=== PATIENT | female | born 1980 | race Two or more races ===

== ENCOUNTER 2022-07-18 08:03 | Inpatient (IN) | payer MEDICARE, OTHER ==
[~2022-07-18] VITALS: Ht 162.6 cm; Wt 129.9 kg
[2022-07-18] MEDS ORDERED: SODIUM CHLORIDE 0.9% 2,000 ML IV ONE (09:30)
[2022-07-18] MEDS ORDERED: methylPREDNISolone SOD SUCC 125 MG/2 ML VL IV ONE (10:15)
[2022-07-18] MEDS ORDERED: diphenhdrAMINE HCL 50 MG/1 ML VL IV ONE (10:15)
[2022-07-18 10:37] LABS: Hemoglobin 12.1 g/dL (12.2-16.2); Red Cell Distribution Width 18.8 % (11.8-14.3)
[2022-07-18 10:38] LABS: Hematocrit 39.3 % (36.0-46.0); Mean Corpuscular Hemoglobin 24.3 pg (28.0-32.0); Mean Corpuscular Hgb Conc. 30.8 g/dL (32.0-36.0); Mean Corpuscular Volume 78.9 fL (80.0-100.0); Red Blood Cells 4.97 10^6/uL (4.0-5.20); White Blood Cell 14.6 10^3/uL (4.4-10.8)
[2022-07-18 10:45] LABS: Albumin 2.8 g/dL (3.4-5.0); Calcium 8.8 mg/dL (8.5-10.1); Potassium 4.5 mmol/L (3.5-5.1)
[2022-07-18 10:48] LABS: BUN/Creatinine Ratio 10.9; Bilirubin, Total 0.4 mg/dL (0.2-1.0); Total Protein 8.2 g/dL (6.4-8.2)
[2022-07-18 10:53] LABS: Urine Amorphous Crystal FEW /hpf (None Seen); Urine Bacteria FEW /hpf (None Seen); Urine Blood 1+ /uL (Negative); Urine Hyaline Cast MANY /lpf (0 - 2); Urine Mucus FEW (None Seen); Urine Specific Gravity 1.025 (1.001-1.035); Urine WBC 40 /hpf (0 - 5)
[2022-07-18] MEDS ORDERED: cefTRIAXone 1GM/50ML D5W 50 ML IV ONE (11:15)
[2022-07-18] MEDS ORDERED: SODIUM CHLORIDE 0.9% 500 ML IVB ONE (11:15)
[2022-07-18] MEDS ORDERED: SODIUM CHLORIDE 0.9% 1,000 ML IV ONE (11:15)
[2022-07-18 11:30] LABS: Lactic Acid w/Reflex 3.9 mmol/L (0.4-2.0)
[2022-07-18 11:54] LABS: Magnesium 1.2 mg/dL (1.6-2.6)
[2022-07-18] MEDS: MAGNESIUM SULFATE 1GM/100ML 100 ML IV SCH ×3 (14:43→18:45)
[2022-07-18] MEDS ORDERED: DOCUSATE SOD 100 MG CAP PO PRN (19:00)
[2022-07-18] MEDS ORDERED: MORPHINE SULFATE INJ 2 MG/ml SYRG IV PRN (19:00)
[2022-07-18] MEDS ORDERED: EPINEPHrine HCL 1 MG/1 ML AMP IM ONE (19:00)
[2022-07-18] MEDS ORDERED: NITROGLYCERIN 0.4 MG SL TAB SL PRN (19:00)
[2022-07-18] MEDS ORDERED: ONDANSETRON HCL 4 MG/2 ML VIAL IV PRN (19:00)
[2022-07-18] MEDS ORDERED: ALBUTEROL SULF 2.5 MG/0.5ML(0.5%) NEB SOLN NEB ONE (19:00)
[2022-07-18] MEDS ORDERED: DEXTROSE (50%) 50ML SYRG IV PRN (19:00)
[2022-07-18] MEDS ORDERED: PIPERACILLIN-TAZOB 3.375GM 100 ML IV ONE (19:15)
[2022-07-18] MEDS: VASOPRESSIN 50 UNITS in D5W 5% 247.5 ML IV SCH (19:15)
[2022-07-18] MEDS ORDERED: VANCOMYCIN 1GM/250ML 250 ML IV ONE (19:15)
[2022-07-18] MEDS: SODIUM CHLORIDE 0.9% 1,000 ML IV SCH (19:17)
[2022-07-18 19:40] LABS: Basophils % (manual) 0 (0.0-2.0); Blast Cells 0; Eosinophils % (manual) 0 (0-7); Promyelocytes % 0; Reactive Lymphocytes 0
[2022-07-18 20:05] LABS: Sodium Urine < 5 mmol/L (40-220)
[2022-07-18 20:07] LABS: Band Neutrophils % (manual) 46; Lymphocytes % (manual) 6 (10.0-50.0); Metamyelocytes % 10; Monocytes % (manual) 2 (0-12); Myelocytes % 22
[2022-07-18 20:40] LABS: Creatinine, Urine 283 mg/dL (30.0-125.0)
[2022-07-18 20:49] LABS: Lactic Acid w/Reflex 4.7 mmol/L (0.4-2.0)
[2022-07-18 21:09] LABS: Amphetamine Screen, Urine NEGATIVE (NEGATIVE); Barbiturate Scree,Urine NEGATIVE (NEGATIVE); Benzodiazephine Screen, Urine NEGATIVE (NEGATIVE); Cannabinoid Screen, Urine NEGATIVE (NEGATIVE); Cocaine Screen, Urine NEGATIVE (NEGATIVE); Opiate Scree,Urine POSITIVE (NEGATIVE); Phencyclidine Screen, Urine NEGATIVE (NEGATIVE)
[2022-07-18 23:19] VITALS: BP 105/50
[2022-07-19] MEDS: ACCU-CHEK COMFORT CURVE STRIP VI SCH ×4 (00:36→18:00)
[2022-07-19] MEDS: InsuLIN REG 1unit/0.01ml Soln (100units/ml) SC SCH ×4 (00:52→18:57)
[2022-07-19] MEDS ORDERED: SODIUM CHLORIDE 0.9% 1,000 ML IV ONE (01:45)
[2022-07-19] MEDS ORDERED: levoFLOXacin 500MG 100 ML IV SCH ×2 (01:45→16:00)
[2022-07-19] MEDS ORDERED: GABA100C9 PO (05:14)
[2022-07-19] MEDS ORDERED: GABA300C10 PO (05:14)
[2022-07-19] MEDS ORDERED: TOPI50TA32 PO (05:18)
[2022-07-19] MEDS ORDERED: FLUO60TA7 PO (05:18)
[2022-07-19] MEDS: SODIUM CHLORIDE 0.9% 1,000 ML IV SCH ×3 (05:26→14:30)
[2022-07-19 05:45] LABS: Basophils # (auto) 0 10 ^3/uL (0-0.2); Lymphocytes # (auto) 0.7 10 ^3/uL (0.4-5.4); Monocytes # (auto) 0.3 10 ^3/uL (0-1.3); Nucleated Red Blood Cells % 0.1 %
[2022-07-19 05:46] LABS: Basophils % (auto) 0.3 % (0.0-2.0); Eosinophils # (auto) 0.8 10 ^3/uL (0-0.8); Hematocrit 37.1 % (36.0-46.0); Hemoglobin 11.2 g/dL (12.2-16.2); Lymphocytes % (auto) 5.8 % (10.0-50.0); Mean Corpuscular Hemoglobin 23.9 pg (28.0-32.0); Mean Corpuscular Hgb Conc. 30.3 g/dL (32.0-36.0); Mean Corpuscular Volume 78.8 fL (80.0-100.0); Monocytes % (auto) 2.6 % (0.0-12.0); Neutrophils # (auto) 10.9 10 ^3/uL (1.6-8.6); Neutrophils % (auto) 85.3 % (37.0-80.0); Red Blood Cells 4.71 10^6/uL (4.0-5.20); Red Cell Distribution Width 18.9 % (11.8-14.3); White Blood Cell 12.7 10^3/uL (4.4-10.8)
[2022-07-19 06:09] LABS: Calcium 7.5 mg/dL (8.5-10.1); Potassium 4.1 mmol/L (3.5-5.1)
[2022-07-19 06:13] LABS: BUN/Creatinine Ratio 22.8; Bilirubin, Total 0.4 mg/dL (0.2-1.0); Total Protein 6.9 g/dL (6.4-8.2)
[2022-07-19] MEDS ORDERED: EMTRTAB7 PO (06:50)
[2022-07-19] MEDS: ALBUTEROL SULF 2.5 MG/0.5ML(0.5%) NEB SOLN NEB PRN (07:26)
[2022-07-19] MEDS: guaiFENesin-DM 100/10mg/5ml SYR PO PRN ×2 (07:33→23:00)
[2022-07-19] MEDS ORDERED: ZINC SULFATE 220mg CAP or TAB PO ONE (12:30)
[2022-07-19] MEDS ORDERED: cefTRIAXone 1GM/50ML D5W 50 ML IV ONE (12:30)
[2022-07-19] MEDS ORDERED: REMDESIVIR PER PHARMACY 0 ML IV SCH (12:30)
[2022-07-19] MEDS ORDERED: CHOLECALCIFEROL (VITD3) 2,000 UNIT CAP/TAB PO ONE (12:30)
[2022-07-19] MEDS: IPRATROPIUM BROM 0.5 MG/2.5ML INH SOL NEB SCH ×2 (13:10→17:34)
[2022-07-19] MEDS: ALBUTEROL SULF 2.5 MG/0.5ML(0.5%) NEB SOLN NEB SCH ×2 (13:10→17:34)
[2022-07-19] MEDS: FAMOTIDINE (10MG/ML) 2ML VL IV SCH (13:23)
[2022-07-19] MEDS: ENOXAPARIN SOD 40 MG/0.4 ML SYRINGE SC SCH (13:24)
[2022-07-19] MEDS ORDERED: IOHEXOL 350 MG/ML 100ML IJ ONE (14:18)
[2022-07-19] MEDS ORDERED: REMDESIVIR 200 MG in NS 210ml LOADING DOSE ADULT IV ONE (15:00)
[2022-07-19] MEDS: VASOPRESSIN 50 UNITS in D5W 5% 247.5 ML IV SCH (18:57)
[2022-07-19 22:00] VITALS: BP 103/60
[2022-07-19] MEDS: TOPIRAMATE 25 MG TAB PO SCH (23:01)
[2022-07-19] MEDS: ASCORBIC ACID 500 MG TAB PO SCH (23:01)
[2022-07-19] MEDS: FLUoxetine HCL 10 MG CAP PO SCH (23:01)
[2022-07-20] MEDS: ALBUTEROL SULF 2.5 MG/0.5ML(0.5%) NEB SOLN NEB SCH ×7 (00:32→22:00)
[2022-07-20] MEDS: IPRATROPIUM BROM 0.5 MG/2.5ML INH SOL NEB SCH ×7 (00:32→22:00)
[2022-07-20 05:00] VITALS: BP 133/78
[2022-07-20] MEDS: InsuLIN REG 1unit/0.01ml Soln (100units/ml) SC SCH ×5 (06:00→23:20)
[2022-07-20] MEDS: ACCU-CHEK COMFORT CURVE STRIP VI SCH ×5 (06:00→23:20)
[2022-07-20 06:37] LABS: Basophils # (auto) 0 10 ^3/uL (0-0.2); Basophils % (auto) 0.1 % (0.0-2.0); Eosinophils # (auto) 0.1 10 ^3/uL (0-0.8); Eosinophils % (auto) 0.7 % (0.0-7.0); Hematocrit 33.3 % (36.0-46.0); Hemoglobin 10.1 g/dL (12.2-16.2); Lymphocytes # (auto) 0.5 10 ^3/uL (0.4-5.4); Lymphocytes % (auto) 3.5 % (10.0-50.0); Mean Corpuscular Hemoglobin 23.4 pg (28.0-32.0); Mean Corpuscular Hgb Conc. 30.4 g/dL (32.0-36.0); Mean Corpuscular Volume 76.8 fL (80.0-100.0); Monocytes # (auto) 0.1 10 ^3/uL (0-1.3); Monocytes % (auto) 0.9 % (0.0-12.0); Neutrophils % (auto) 94.8 % (37.0-80.0); Nucleated Red Blood Cells % 0.1 %; Red Blood Cells 4.34 10^6/uL (4.0-5.20); White Blood Cell 14.8 10^3/uL (4.4-10.8)
[2022-07-20 07:04] LABS: Albumin 1.9 g/dL (3.4-5.0); Calcium 7.7 mg/dL (8.5-10.1); Magnesium 2.2 mg/dL (1.6-2.6); Potassium 3.7 mmol/L (3.5-5.1)
[2022-07-20 07:09] LABS: BUN/Creatinine Ratio 29.2; Bilirubin, Total 0.4 mg/dL (0.2-1.0); Total Protein 6.1 g/dL (6.4-8.2)
[2022-07-20] MEDS: SODIUM CHLORIDE 0.9% 1,000 ML IV SCH ×2 (07:10→21:42)
[2022-07-20 09:00] VITALS: BP 124/77
[2022-07-20] MEDS: cefTRIAXone 1GM/50ML D5W 50 ML IV SCH (09:00)
[2022-07-20] MEDS: ZINC SULFATE 220mg CAP or TAB PO SCH (10:00)
[2022-07-20] MEDS: DexAMETHasone SOD PHOS 10MG/1ML VIAL INJ IV SCH (10:00)
[2022-07-20] MEDS: FAMOTIDINE (10MG/ML) 2ML VL IV SCH (11:31)
[2022-07-20] MEDS: ENOXAPARIN SOD 40 MG/0.4 ML SYRINGE SC SCH (11:32)
[2022-07-20] MEDS: CHOLECALCIFEROL (VITD3) 2,000 UNIT CAP/TAB PO SCH (11:32)
[2022-07-20] MEDS: TOPIRAMATE 25 MG TAB PO SCH ×3 (11:33→21:41)
[2022-07-20] MEDS: ASCORBIC ACID 500 MG TAB PO SCH ×2 (11:33→21:42)
[2022-07-20 12:25] LABS: Alcohol, Urine < 3.0 mg/dL (0-10); Amphetamine Screen, Urine NEGATIVE (NEGATIVE); Barbiturate Scree,Urine NEGATIVE (NEGATIVE); Benzodiazephine Screen, Urine NEGATIVE (NEGATIVE); Cannabinoid Screen, Urine NEGATIVE (NEGATIVE); Cocaine Screen, Urine NEGATIVE (NEGATIVE); Opiate Scree,Urine NEGATIVE (NEGATIVE); Phencyclidine Screen, Urine NEGATIVE (NEGATIVE)
[2022-07-20 13:00] VITALS: BP 129/70
[2022-07-20] MEDS ORDERED: GABAPENTIN 300 MG CAP PO SCH (14:00)
[2022-07-20] MEDS ORDERED: AZITHROMYCIN 250 MG TAB PO ONE (15:00)
[2022-07-20] MEDS: REMDESIVIR 100mg 100 MG in SODIUM CHL 0.9% 230 ML IV SCH (15:00)
[2022-07-20 17:00] VITALS: BP 119/86
[2022-07-20] MEDS: FLUoxetine HCL 10 MG CAP PO SCH (21:41)
[2022-07-20] MEDS: GABAPENTIN 400 MG CAP PO SCH (21:41)
[2022-07-20 22:00] VITALS: BP 133/97
[2022-07-21] VITALS (7 sets, daily range): BP systolic 113–138; BP diastolic 60–82
[2022-07-21] MEDS: guaiFENesin-DM 100/10mg/5ml SYR PO PRN ×2 (01:20→21:32)
[2022-07-21] MEDS: IPRATROPIUM BROM 0.5 MG/2.5ML INH SOL NEB SCH ×7 (01:21→22:00)
[2022-07-21] MEDS: ALBUTEROL SULF 2.5 MG/0.5ML(0.5%) NEB SOLN NEB SCH ×7 (01:21→22:00)
[2022-07-21] MEDS ORDERED: levoFLOXacin 250MG 50 ML IV SCH (01:45)
[2022-07-21] MEDS: SODIUM CHLORIDE 0.9% 1,000 ML IV SCH (04:23)
[2022-07-21] MEDS: GABAPENTIN 400 MG CAP PO SCH ×3 (05:18→21:23)
[2022-07-21] MEDS: ACCU-CHEK COMFORT CURVE STRIP VI SCH (05:18)
[2022-07-21] MEDS: TOPIRAMATE 25 MG TAB PO SCH ×3 (05:18→21:24)
[2022-07-21] MEDS: InsuLIN REG 1unit/0.01ml Soln (100units/ml) SC SCH (05:18)
[2022-07-21 06:03] LABS: Potassium 3.9 mmol/L (3.5-5.1)
[2022-07-21 06:10] LABS: Albumin 1.7 g/dL (3.4-5.0); BUN/Creatinine Ratio 28.4; Calcium 8.4 mg/dL (8.5-10.1)
[2022-07-21 06:13] LABS: Bilirubin, Total 0.4 mg/dL (0.2-1.0); Total Protein 6.8 g/dL (6.4-8.2)
[2022-07-21] MEDS: EMTRICITABINE-TENOFOVIR 200/300MG(TRUVADA) PO SCH (08:47)
[2022-07-21] MEDS: cefTRIAXone 1GM/50ML D5W 50 ML IV SCH (08:47)
[2022-07-21] MEDS: DexAMETHasone SOD PHOS 10MG/1ML VIAL INJ IV SCH (08:47)
[2022-07-21] MEDS: ZINC SULFATE 220mg CAP or TAB PO SCH (08:47)
[2022-07-21] MEDS: ASCORBIC ACID 500 MG TAB PO SCH ×2 (08:47→21:24)
[2022-07-21] MEDS: ENOXAPARIN SOD 40 MG/0.4 ML SYRINGE SC SCH (08:48)
[2022-07-21] MEDS: CHOLECALCIFEROL (VITD3) 2,000 UNIT CAP/TAB PO SCH (08:48)
[2022-07-21] MEDS ORDERED: AZITHROMYCIN 250 MG TAB PO SCH (10:00)
[2022-07-21] MEDS: REMDESIVIR 100mg 100 MG in SODIUM CHL 0.9% 230 ML IV SCH (14:53)
[2022-07-21] MEDS: FLUoxetine HCL 10 MG CAP PO SCH (21:23)
[2022-07-22] MEDS: IPRATROPIUM BROM 0.5 MG/2.5ML INH SOL NEB SCH ×7 (02:00→21:55)
[2022-07-22] MEDS: ALBUTEROL SULF 2.5 MG/0.5ML(0.5%) NEB SOLN NEB SCH ×7 (02:00→21:55)
[2022-07-22 05:00] VITALS: BP 152/92
[2022-07-22 06:00] VITALS: BP 133/72
[2022-07-22 06:03] LABS: Albumin 1.6 g/dL (3.4-5.0); Calcium 8.2 mg/dL (8.5-10.1)
[2022-07-22 06:05] LABS: BUN/Creatinine Ratio 47.8; Bilirubin, Total 0.3 mg/dL (0.2-1.0)
[2022-07-22] MEDS: TOPIRAMATE 25 MG TAB PO SCH ×3 (06:07→21:17)
[2022-07-22] MEDS: GABAPENTIN 400 MG CAP PO SCH ×3 (06:07→21:16)
[2022-07-22 09:00] VITALS: BP 133/67
[2022-07-22] MEDS: DexAMETHasone SOD PHOS 10MG/1ML VIAL INJ IV SCH (09:25)
[2022-07-22] MEDS: ZINC SULFATE 220mg CAP or TAB PO SCH (09:25)
[2022-07-22] MEDS: ASCORBIC ACID 500 MG TAB PO SCH ×2 (09:25→21:17)
[2022-07-22] MEDS: SODIUM CHLORIDE 0.9% 1,000 ML IV SCH (09:25)
[2022-07-22] MEDS: ENOXAPARIN SOD 40 MG/0.4 ML SYRINGE SC SCH (09:26)
[2022-07-22] MEDS: EMTRICITABINE-TENOFOVIR 200/300MG(TRUVADA) PO SCH (09:26)
[2022-07-22] MEDS: CHOLECALCIFEROL (VITD3) 2,000 UNIT CAP/TAB PO SCH (09:26)
[2022-07-22 10:15] LABS: Hemoglobin 9.6 g/dL (12.2-16.2); Mean Corpuscular Hgb Conc. 31.2 g/dL (32.0-36.0)
[2022-07-22 10:17] LABS: Hematocrit 30.7 % (36.0-46.0); Mean Corpuscular Volume 76.8 fL (80.0-100.0); Red Cell Distribution Width 19.3 % (11.8-14.3); White Blood Cell 19.4 10^3/uL (4.4-10.8)
[2022-07-22 10:21] LABS: Basophils % (manual) 0 (0.0-2.0); Blast Cells 0; Eosinophils % (manual) 0 (0-7); Myelocytes % 0; Promyelocytes % 0; Reactive Lymphocytes 0
[2022-07-22 11:48] LABS: Band Neutrophils % (manual) 9; Lymphocytes % (manual) 5 (10.0-50.0); Metamyelocytes % 4; Monocytes % (manual) 4 (0-12)
[2022-07-22 13:00] VITALS: BP 124/66
[2022-07-22] MEDS: REMDESIVIR 100mg 100 MG in SODIUM CHL 0.9% 230 ML IV SCH (15:17)
[2022-07-22 17:00] VITALS: BP 110/72
[2022-07-22] MEDS: NYSTATIN (MOUTH-THROAT) 500,000 UNITS/5 ML SUSP MT SCH (21:16)
[2022-07-22] MEDS: FLUoxetine HCL 10 MG CAP PO SCH (21:17)
[2022-07-22 22:00] VITALS: BP 133/66
[2022-07-23] MEDS: SODIUM CHLORIDE 0.9% 1,000 ML IV SCH ×2 (01:50→17:17)
[2022-07-23] MEDS: guaiFENesin-DM 100/10mg/5ml SYR PO PRN (03:16)
[2022-07-23] MEDS: ALBUTEROL SULF 2.5 MG/0.5ML(0.5%) NEB SOLN NEB PRN (03:29)
[2022-07-23 05:00] VITALS: BP 136/76
[2022-07-23] MEDS: GABAPENTIN 400 MG CAP PO SCH ×3 (05:38→21:43)
[2022-07-23] MEDS: TOPIRAMATE 25 MG TAB PO SCH ×3 (05:38→21:43)
[2022-07-23 05:42] LABS: Calcium 8.3 mg/dL (8.5-10.1); Potassium 3.8 mmol/L (3.5-5.1)
[2022-07-23 05:48] LABS: Albumin 1.6 g/dL (3.4-5.0); Bilirubin, Total 0.2 mg/dL (0.2-1.0); Total Protein 6.8 g/dL (6.4-8.2)
[2022-07-23] MEDS: ALBUTEROL SULF 2.5 MG/0.5ML(0.5%) NEB SOLN NEB SCH ×5 (07:38→22:20)
[2022-07-23] MEDS: IPRATROPIUM BROM 0.5 MG/2.5ML INH SOL NEB SCH ×5 (07:38→22:20)
[2022-07-23 09:00] VITALS: BP 132/75
[2022-07-23] MEDS: NYSTATIN (MOUTH-THROAT) 500,000 UNITS/5 ML SUSP MT SCH ×2 (10:02→21:43)
[2022-07-23] MEDS: DexAMETHasone SOD PHOS 10MG/1ML VIAL INJ IV SCH (10:02)
[2022-07-23] MEDS: ENOXAPARIN SOD 40 MG/0.4 ML SYRINGE SC SCH (10:03)
[2022-07-23] MEDS: ZINC SULFATE 220mg CAP or TAB PO SCH (10:03)
[2022-07-23] MEDS: CHOLECALCIFEROL (VITD3) 2,000 UNIT CAP/TAB PO SCH (10:03)
[2022-07-23] MEDS: ASCORBIC ACID 500 MG TAB PO SCH ×2 (10:03→21:44)
[2022-07-23] MEDS: EMTRICITABINE-TENOFOVIR 200/300MG(TRUVADA) PO SCH (10:03)
[2022-07-23 13:00] VITALS: BP 126/71
[2022-07-23] MEDS: REMDESIVIR 100mg 100 MG in SODIUM CHL 0.9% 230 ML IV SCH (14:08)
[2022-07-23 17:00] VITALS: BP 119/61
[2022-07-23] MEDS ORDERED: KETOROLAC TROMETH 30 MG/ML 1ML VIAL IV ONE (21:00)
[2022-07-23] MEDS: FLUoxetine HCL 10 MG CAP PO SCH (21:43)
[2022-07-23 22:11] VITALS: BP 144/96
[2022-07-24] MEDS: IPRATROPIUM BROM 0.5 MG/2.5ML INH SOL NEB SCH ×6 (01:52→18:00)
[2022-07-24] MEDS: ALBUTEROL SULF 2.5 MG/0.5ML(0.5%) NEB SOLN NEB SCH ×6 (01:52→18:00)
[2022-07-24] MEDS: KETOROLAC TROMETH 30 MG/ML 1ML VIAL IV PRN ×2 (04:30→16:46)
[2022-07-24 05:24] VITALS: BP 135/72
[2022-07-24] MEDS: GABAPENTIN 400 MG CAP PO SCH ×3 (06:02→21:19)
[2022-07-24] MEDS: NYSTATIN (MOUTH-THROAT) 500,000 UNITS/5 ML SUSP MT SCH ×3 (06:02→21:19)
[2022-07-24] MEDS: TOPIRAMATE 25 MG TAB PO SCH ×3 (06:02→21:19)
[2022-07-24 09:00] VITALS: BP 135/63
[2022-07-24] MEDS: ENOXAPARIN SOD 40 MG/0.4 ML SYRINGE SC SCH (09:30)
[2022-07-24] MEDS: EMTRICITABINE-TENOFOVIR 200/300MG(TRUVADA) PO SCH (09:30)
[2022-07-24] MEDS: DexAMETHasone SOD PHOS 10MG/1ML VIAL INJ IV SCH (09:30)
[2022-07-24] MEDS: ZINC SULFATE 220mg CAP or TAB PO SCH (09:32)
[2022-07-24] MEDS: FUROSEMIDE 20 MG/2 ML VIAL IV SCH (09:32)
[2022-07-24] MEDS: ASCORBIC ACID 500 MG TAB PO SCH ×2 (09:32→21:19)
[2022-07-24] MEDS: CHOLECALCIFEROL (VITD3) 2,000 UNIT CAP/TAB PO SCH (09:32)
[2022-07-24] MEDS: SODIUM CHLORIDE 0.9% 1,000 ML IV SCH (10:06)
[2022-07-24] MEDS: diphenhdrAMINE HCL 50 MG/1 ML VL IV PRN ×2 (10:08→23:16)
[2022-07-24] MEDS ORDERED: ASCO500T11 PO (11:51)
[2022-07-24] MEDS ORDERED: AZIT500T66 PO (11:51)
[2022-07-24] MEDS ORDERED: ZINC220C10 PO (11:51)
[2022-07-24] MEDS ORDERED: ALBUAER3 IN (11:51)
[2022-07-24] MEDS ORDERED: NYS5LQ MT (11:51)
[2022-07-24] MEDS ORDERED: DIPH25CA66 PO (11:51)
[2022-07-24] MEDS ORDERED: CHOL500035 PO (11:53)
[2022-07-24 13:00] VITALS: BP 125/70
[2022-07-24 16:10] VITALS: BP 125/70
[2022-07-24 17:00] VITALS: BP 144/74
[2022-07-24] MEDS: FLUoxetine HCL 10 MG CAP PO SCH (21:19)
[2022-07-24 22:00] VITALS: BP 122/64
[2022-07-24] MEDS ORDERED: IPRATROPIUM BROM 0.5 MG/2.5ML INH SOL NEB PRN (22:00)
[2022-07-25] MEDS: KETOROLAC TROMETH 30 MG/ML 1ML VIAL IV PRN ×2 (02:10→08:12)
[2022-07-25] MEDS: SODIUM CHLORIDE 0.9% 1,000 ML IV SCH (04:31)
[2022-07-25 05:00] VITALS: BP 139/69
[2022-07-25] MEDS: GABAPENTIN 400 MG CAP PO SCH ×2 (05:04→13:10)
[2022-07-25] MEDS: TOPIRAMATE 25 MG TAB PO SCH ×2 (05:04→14:00)
[2022-07-25] MEDS: NYSTATIN (MOUTH-THROAT) 500,000 UNITS/5 ML SUSP MT SCH ×2 (05:04→13:10)
[2022-07-25 08:30] VITALS: BP 121/67
[2022-07-25 08:58] VITALS: BP 121/67
[2022-07-25] MEDS: ASCORBIC ACID 500 MG TAB PO SCH (09:27)
[2022-07-25] MEDS: ZINC SULFATE 220mg CAP or TAB PO SCH (09:27)
[2022-07-25] MEDS: CHOLECALCIFEROL (VITD3) 2,000 UNIT CAP/TAB PO SCH (09:27)
[2022-07-25] MEDS: EMTRICITABINE-TENOFOVIR 200/300MG(TRUVADA) PO SCH (09:27)
[2022-07-25] MEDS: DexAMETHasone SOD PHOS 10MG/1ML VIAL INJ IV SCH (09:28)
[2022-07-25] MEDS: ENOXAPARIN SOD 40 MG/0.4 ML SYRINGE SC SCH (09:28)
[2022-07-25] MEDS: FUROSEMIDE 20 MG/2 ML VIAL IV SCH (09:28)
[2022-07-25 10:49] VITALS: BP 121/67
[2022-07-25 13:00] VITALS: BP 121/71
== END 2022-07-25 15:05 | disposition home or self-care (01) | DRG 871 ==
LOC: ER 08:03 → TELE 19:20 → TELE-WESTW 07-19 21:08
PROVIDERS: ADMIT Nurse Practitioner Family; ATTEND Family Medicine
PROC: XW033E5 Introduction of Remdesivir Anti-infective into Peripheral Vein, Percutaneous Approach, New Technology Group 5 (ICD-10-PCS; principal; 2022-07-19)
PROC: 05HF33Z Insertion of Infusion Device into Left Cephalic Vein, Percutaneous Approach (ICD-10-PCS; 2022-07-20)
PROC: B54NZZA Ultrasonography of Left Upper Extremity Veins, Guidance (ICD-10-PCS; 2022-07-20)
DX: A41.89 Other specified sepsis (principal); E43 Unspecified severe protein-calorie malnutrition; R65.21 Severe sepsis with septic shock; J96.01 Acute respiratory failure with hypoxia; U07.1 COVID-19; J12.82 Pneumonia due to coronavirus disease 2019; N17.9 Acute kidney failure, unspecified; E87.1 Hypo-osmolality and hyponatremia; N18.4 Chronic kidney disease, stage 4 (severe); N10 Acute pyelonephritis; F31.32 Bipolar disorder, current episode depressed, moderate; J98.11 Atelectasis; Z68.42 Body mass index [BMI] 45.0-49.9, adult; E88.09 Other disorders of plasma-protein metabolism, not elsewhere classified; E11.21 Type 2 diabetes mellitus with diabetic nephropathy; D64.9 Anemia, unspecified; E83.42 Hypomagnesemia; E86.0 Dehydration; E11.22 Type 2 diabetes mellitus with diabetic chronic kidney disease; E66.01 Morbid (severe) obesity due to excess calories; F20.9 Schizophrenia, unspecified; F17.210 Nicotine dependence, cigarettes, uncomplicated; E11.40 Type 2 diabetes mellitus with diabetic neuropathy, unspecified; K76.0 Fatty (change of) liver, not elsewhere classified; K59.00 Constipation, unspecified; M79.7 Fibromyalgia; Z88.8 Allergy status to other drugs, medicaments and biological substances
CPT/HCPCS: 36415; 36600; 71045; 71250; 71275; 74176; 80053; 80061; 80307; 81001; 82270; 82550; 82570; 82805; 82962; 83036; 83605; 83690; 83735; 84100; 84300; 84443; 84702; 85007; 85025; 85027; 85652; 87040; 87086; 87426; 87493; 87804; 93005; 93306; 93971; 94640; 96361; 96365; 96366; 96367; 96368; 96372; 96375; G0378; J0171; J0696; J1100; J1815; J1885; J1956; J2405; J2543; J3490; J7060